=== PATIENT | female | born 1980 | race Caucasian/White ===

== ENCOUNTER 2020-08-09 13:49 | Outpatient (CLI) | payer BC, SELFPAY ==
[2020-08-09 14:18] VITALS: BMI 35.5
--- NOTE | 2020-08-09 14:27 | ECG_ITS ---
[facility] Test Date: 2020-08-09 Pat Name: Willa Christianson Department: Room: Gender: Female Tug Captain: : 1980 Requested By: April Galan Order Number: [id number] Mercedez MD: Rhoda Cardoza M.D. Interpretive Statements NAME OF STUDY: TREADMILL STRESS TEST INDICATION: Chest Pain Baseline blood pressure of 151/64 mm Hg, heart rate of 70 beats per minute and oxygen saturation 99%. EKG showed normal sinus rhythm, normal axis with normal ST-Ts. The patient exercised for 6 minutes 52 seconds on a standard Joe protocol. Patient attained a maximum heart rate of 160 beats per minute(89% of the maximum predicted heart rate) with a blood pressure at the peak exercise of 171/79 mm Hg and oxygen saturation 92%. The EKG at the peak exercise revealed sinus tachycardia with 1/[address] depression in infero-lateral leads; not meeting diagnostic crieteria for ischemia. Patient did not have any chest pain or any significant arrhythmis with the exercise. Patient developed chest pressure described as someone sitting on her chest during exercise that resolved by discharge. During the recovery phase, there were no new changes. Blood pressure at the end of the recovery phase was 130/84 mm Hg with a heart rate of 88 beats per minute and oxygen saturation 98%. CONCLUSION: 1. Normal EKG response to treadmill exercise. 2. Patient did have exercise-induced chest pressure that was self- limiting. No cardiac arrhythmia. 3. Good exercise tolerance, attained a maximum of 10.2 METs. Maximum VO2 of 35.7 mL/kg/min. 4. Baseline hypertension with normal response to exercise. Electronically Signed On 08-15-2020 21:04:30 MATCHBOOK MAKER by Rhoda Cardoza M.D. [id number]
[2020-08-09 14:55] VITALS: BP 130/84; PULSE 84
--- NOTE | 2020-08-09 14:55 | PC.NURSE ---
pt stated she couldn't go any longer due to the pressure in her chest and being out of breath. She stated it felt like someone was sitting on my chest chest pressure no longer present on discharge.
== END 2020-08-09 13:50 | disposition home or self-care (01) ==
LOC: CDL 13:53
PROVIDERS: Visit Provider Nurse Practitioner Family
DX: R07.9 Chest pain, unspecified (principal)
CPT/HCPCS: 93017

== ENCOUNTER 2025-02-16 05:30 | Emergency (ER) | payer BC, SELFPAY ==
--- OUTSIDE RECORDS SUMMARY | 2024-05-15 09:20 | XMS_ITS ---
Author Organization [employer] [employer] Address [address] [place] [address] Care Team Providers Care Telephone Lineworker Name Role Phone Genie Vega Primary Care Provider Unavailab Aleks Daniel Unavailable [phone] HARSHA PIERCE Unavailable [phone] REASON FOR VISIT 4 weeks w KUB Encounters Encounter Location Date Provider Diagnosis [facility] [address] [facility] [place] [address] 2024 HARSHA PIERCE Plan Of Treatment No Information Progress Notes * LUCIA, JuanB:1980 ( 44 yo F)Acc No.[id number]:2024 Patient: Willa OCHOA Provider: SYBIL Bae :1980 A ge:44 Y S ex:Female Date:2024 Address:[address] [facility], [id number] Pcp:Genie Vega Subjective: * Chief Complaints: * 1 . 4 weeks w KUB. * Medical History: Objective: * Vitals: Assessment: Plan: * Treatment: * Billing Information: * Visit Code: * Procedure Codes: * Electronic signature of HARSHA PIERCE APRN on 02/16/2025 at 05:41 AM CDT Sign off status: Pending * Provider: SYBIL Bae Date: 07/15/2023 Generated for Yolanda ford/Narayan/Chrisitting on: 0 02/16/2025 05:41 AM CDT
--- OUTSIDE RECORDS SUMMARY | 2024-11-20 08:00 | XMS_ITS ---
Author Organization [facility] Address [address] [place] [address] Care Team Providers Care Mineral Economist Name Role Phone Janet Vega Primary Care Provider [phone] REASON FOR VISIT 2 month f/u: chronic condition Encounters Encounter Location Date Provider Diagnosis [facility] [address] [place] [address] 11/20/2024 Janet Vega Plan Of Treatment No Information Progress Notes * CYNTHIA MYERSDOB:1980 (44 yo F)Acc No.[id number]:11/20/2024 Progress Notes Patient: Sanjana KAY CYNTHIA Tenorio Provider: Jaspreet Vega APRN :1980 A ge:44 Y S ex:Female Date:11/20/2024 Address:[address] [place], [place] [id number] Subjective: * Chief Complaints: * 2 month f/u: chronic condition * Ocular Surgical History: Objective: Vision Examination: Billing Information: * Procedure Codes: * Electronic signature of RYLEY Alex on 02/16/2025 at 05:41 AM CDT Sign off status: Pending * Provider: Jaspreet Vega APRN Date: 11/20/2024 Generated for Printi ng/Faxing/eTransmitting on: 02/16/2025 05:41 AM CDT
--- OUTSIDE RECORDS SUMMARY | 2025-01-30 03:30 | XMS_ITS ---
Author Organization [facility] Address [address] [place] [address] Care Team Providers Care Marshmallow Machine Operator Name Role Phone Jaent Vega Primary Care Provider [phone] REASON FOR VISIT f/u chronic cond/fasting lab *Controlling High BP and Colorectal Cancer Screening Medications Medication SIG (Take, Route, Frequency, Duration) Notes Start Date End Date Status ALPRAZolam 0.5 MG Tablet 1 tablet Orally up to Twice a day as needed; Duration: 30 days 08/04/2023 Not-Taking Lisinopril 20 MG Tablet 1 tablet Orally Once a day; Duration: 90 days 05/19/2023 Active oxyBUTYnin Chloride 5 MG Tablet 1 tablet Orally Once a day; Duration: 90 days Active Encounters Encounter Location Date Provider Diagnosis [facility] [address] [place] [address] 01/30/2025 Janet Vega Plan Of Treatment No Information Progress Notes * CYNTHIA MYERSDOB:1980 (44 yo F)Acc No.[id number]:01/30/2025 Progress Notes Patient: Sanjana CYNTHIA KAY Provider: Jaspreet Vega APRN :1980 A ge:44 Y S ex:Female Date:01/30/2025 Address:[address] [place], [place] [id number] Subjective: * Chief Complaints: * f /u chronic cond/fasting lab *Controlling High BP and Colorectal Cancer Screening * Medications: T akingLisinopril 20 MG Tablet 1 tablet Orally Once a day oxyBUTYnin Chloride 5 MG Tablet 1 tablet Orally Once a day Taking Lisinopril 20 MG Tablet 1 tablet Orally Once a day Taking oxyBUTYnin Chloride 5 MG Tablet 1 tablet Orally Once a day Not-TakingALPRAZolam 0.5 MG Tablet 1 tablet Orally up to Twice a day as needed Not-Taking ALPRAZolam 0.5 MG Tablet 1 tablet Orally up to Twice a day as needed Billing Information: * Procedure Codes: Care Plan Details* * Electronic signature of RYLEY Alex on 02/16/2025 at 05:41 AM CDT Sign off status: Pending * Provider: Jaspreet Vega APRN Date: 01/30/2025 Generated for Yolanda Marquez on: 02/16/2025 05:41 AM CDT
[2025-02-16] VITALS (8 sets, daily range): BP systolic 138–165; BP diastolic 83–117; PULSE 50–87; RESP 16–20; TEMP 36.6; O2SAT 94–100; BMI 40.3
--- OUTSIDE RECORDS SUMMARY | 2025-02-16 05:41 | XMS_ITS | Patient Health Record ---
Author Organization [employer] Address [address] [place] [address] Care Team Providers Care Measurement And Sensing Technician Name Role Phone Gary Genie Primary Care Provider Unavailab Aleks Daniel Unavailable [phone] ALEKS AMEZCUA Unavailable [phone] HARSHA PIERCE Unavailable [phone] TABITHA GAN Unavailable [phone] Allergies Allergen (clinical drug ingredient) Drug/Non Drug Allergy documented on EMR Reaction Allergy Type Onset Date Status Penicillin Unknown Drug Allergy Active Results Component Value Reference Range Notes Basic Metabolic Panel Reviewed date:04/13/2024 09:22:45 AM Interpretation: Performing Lab: Notes/Report: Testing performed at [facility], [address] [place] [address] Dr. [place], [place] [address]. CLIA ID#: [id number] W-gjynop-b-benzoquinone imine (NAPQI) is a metabolite of acetaminophen, NAPQI concentrations of apparoximately 10 mg/L correlation to toxic levels of acetaminophen demonstrates a greater than or equil to 10% change in results. NAPQI concentrations greater than this may lead to falsely depressed results for patient samples. Calculation performed from GFR calculator provided by the National Kidney Foundation. Glomerular Filtration rate(GRF) is the best overall index of kidney function. Normal GFR varies according to age,sex, body size, and declines with age. The National Kidney Foundation recommends using the CKD-EPI Creatinine Equation(2020) to estimate GFR. Testing performed at: [address] [place] [address] CLIA ID [id number] Use of this assay is not recommended for patients undergoing treatment with phenindione, due to the potential for falsely depressed results. Sodium 140 136-145 MMOL/L Potassium 3.9 3.5-5.1 MMOL/L Chloride 107 98-107 MMOL/L CO2 26.5 20.0-31.0 MMOL/L Glucose Serum 129 71-110 MG/DL BUN 10 7-21 MG/DL Creat .78 .51-1.17 MG/DL GFR 95.2 Anion Gap 10 5-15 BUN/Creat Ratio 12.8 12.0-20.0 % Calcium 9.3 8.7-10.4 MG/DL Osmo Serum,Calculated 291 280-300 MOSM/KG CBC w/ Auto Diff Reviewed date:04/13/2024 09:22:42 AM Interpretation: Performing Lab: Notes/Report: Testing performed at: [address] [place] [address] CLIA ID [id number] WBC 7.7 4.5-11.0 X10'3 RBC 4.42 4.00-5.20 X10'6 Hgb 13.3 12.0-16.0 G/DL Hct 41.0 36.0-46.0 % MCV 92.8 80.0-100.0 FL MCH 30.1 27.0-31.0 PG MCHC 32.4 31.0-37.0 G/DL Platelet 309 150-400 X10'3 RDW-SD 44.4 35.0-49.0 FL RDW-CV 12.9 12.2-15.6 % MPV 11.2 9.2-12.0 FL Neutro Auto% 65.0 40.0-70.0 % Lymph Auto% 29.1 22.0-44.0 % [place] Auto% 4.7 3.0-7.0 % Eos Auto% .4 2.0-4.0 % Baso Auto% 0.4 0.0-1.0 % Imm Gran% .4 .0-.4 % Neutro Abs 5.01 .80-7.70 Absolute Neutrophil Count 5010 Lymph Abs 2.24 .10-4.10 [place] Abs .36 .20-1.00 Eos Abs .03 .00-.40 Baso Abs .03 .00-.20 Imm Gran Abs .03 .00-.10 NRBC# .00 .00-.20 X10'3 NRBC% .00 .00-.20 /100 intact WBC's Urinalysis, Routine Reviewed date:04/07/2024 08:24:04 AM Interpretation: Performing Lab: Notes/Report: Urine-Color yellow Appearance clear Glucose - Bilirubin - Ketones - Specific [place] 1.020 Occult Blood 1+ pH 6.0 Urine Protein - Urobilinogen,Semi-Qn - Nitrite, Urine - WBC Esterase 2+ Urinalysis, Routine Reviewed date:03/30/2024 08:42:58 AM Interpretation: Performing Lab: Notes/Report: Urine-Color yellow Appearance clear Glucose - Bilirubin - Ketones - Specific [place] 1.020 Occult Blood trace pH 6.5 Urine Protein - Urobilinogen,Semi-Qn - Nitrite, Urine - WBC Esterase trace Reason For Referral Reason Please smita galvez for chronic kidney stones. Pt was seen 03/30/24. Diagnosis 1 Kidney stone (N20.0) Referred Provider TABITHA GAN Referred Provider Specialty Urology Referral Priority Routine Medications Medication SIG (Take, Route, Fr equency, Duration) Notes Start Date End Date Status Lisinopril 20 MG 1 tablet Orally Once a day Active Social History Tobacco Use: Social History Observation Description Date Details (start date - stop date) Never Smoker NA - NA Tobacco Control (Standard) Question Answer Notes Tobacco use: Nonsmoker Problems Problem Type SNOMED Code ICD Code Onset Dates Problem Status W/U Status Risk Notes Problem Essential hypertension (16053298) Essential (primary) hypertension (I10) Active confirmed Problem Kidney stone (33702745) Bilateral nephrolithiasis (N20.0) Active confirmed Problem Kidney stone (89496729) Kidney stone (N20.0) Active confirmed Vital Signs Heart Rate 75 /min 04/07/2024 Blood pressure diastolic 81 mm Hg 04/07/2024 Height-cm 167.64 cm 04/07/2024 Weight-kg 113.4 kg 04/07/2024 Height 66 in 04/07/2024 Blood pressure systolic 127 mm Hg 04/07/2024 Weight 250 lbs 04/07/2024 BMI 40.35 kg/m2 04/07/2024 Encounters Encounter Location Date Provider Diagnosis [facility] [address] [place] [address] 03/30/2024 Aleks Ballard Kidney stone N20.0 ; Right flank pain R10.9 and Microscopic hematuria R31.29 [facility] [address] [facility] [address] [place] [address] 04/07/2024 Aleks Ballard Microscopic hematuri a R31.29 ; Kidney stone N20.0 and Right flank pain R10.9 [facility] [address] [facility] [address] [place] [address] 04/14/2024 TABITHA ABBOTTER Calculus of kidney N 20.0 [facility] [address] [place] [address] 03/28/2024 ALEKS AMEZCUA [facility] [address] [place] [address] 03/30/2024 Aleks Ballard [facility], [facility] [address] [place] [address] 04/10/2024 TABITHA GAN [facility] [address] [place] [address] 04/10/2024 TABITHA GAN Preop testing Z01.81 8 and Essential (primary) hypertension I10 [facility] [address] [place] [address] 04/10/2024 Aleks Peeleazar [facility], [facility] [address] [place] [address] 04/14/2024 Aleks Ballard Bilateral nephrolithiasis N20.0 [facility], [facility] [address] [place] [address] 04/18/2024 Aleks Ballard Assessments Encounter Date Diagnosis (ICD Code) Assessment Notes Treatment Notes Treatment Clinical Notes Section Notes 04/14/2024 Bilateral nephrolithiasis (ICD-10 - N20.0) 04/07/2024 Microscopic hematuria (ICD-10 - R31.29) I reviewed previous CT and KUB imaging along with radiology report and discussed findings with patient with bilateral nonobstructive stone seen with lower pole to the right measuring 5mm with some other punctate stones and to the left, there is a lower pole calcification measuring 6x10 mm with other punctate nephrolithiasis. She is still reporting of intermittent R flank pain. Did discuss these nonobstructive stones that are seen may not be the cause of her pain. She would like to move forward with lithotripsy and then assess further following and start with the R ESWL and then move forward to the L following at another date. I discussed that the larger stone seen on the R does appear more parenchymal and no need for intervention at this time. Appears to have been there long term. Given everything discussed and findings, we discussed on how the procedure was performed, and we also had further discussion with risks/benefits/alt ernatives and postprocedural expectations. Presurgical and what to expect postoperatively discussed. The plan is to have this done as soon as possible given symptoms. Will send UA for PCR testing. Patient is requesting to be under Dr. Liang care. For now, and through shared decision making we are in agreement with no further workup or intervention at this time, aside from what was mentioned. Vitals are stable and patient is currently asymptomatic. Patient acting appropriate. Patient will call back if further issues. All questions that were asked, were answered. Patient satisfied with plan. 03/30/2024 Right flank pain (ICD-10 - R10.9) I reviewed previous imaging along with radiology report and discussed findings with patient with bilateral nonobstructive stone seen. Patient is currently doing well with no significant pain today, but has had R flank pain.. Did discuss if patient did develop pain/symptoms, may consider to start on Flomax, strainers, and reinforcement of hydration. UA test currently with no concern of infection but with trace blood and leuks. We also reviewed surgical options and pt will call back sooner if patient desires to proceed with that but otherwise, through shared decision making, we are in agreement with gaining a CT prior to moving forward with any further intervention involving nephrolithiasis seen on KUB. Patient is to go to the ER versus clinic depending on severity of symptoms if does start to pass stone. Otherwise, no emergent need of intervention at this time. Plan is to have patient return care in [address] orders that are placed. For now, and through shared decision making we are in agreement with no further workup or intervention at this time, aside from what was mentioned. Vitals are stable and patient is currently asymptomatic. Patient acting appropriate. Patient will call back if further issues. All questions that were asked, were answered. Patient satisfied with plan. 03/30/2024 Kidney stone (ICD-10 - N20.0) I reviewed previous imaging along with radiology report and discussed findings with patient with bilateral nonobstructive stone seen. Patient is currently doing well with no significant pain today, but has had R flank pain.. Did discuss if patient did develop pain/symptoms, may consider to start on Flomax, strainers, and reinforcement of hydration. UA test currently with no concern of infection but with trace blood and leuks. We also reviewed surgical options and pt will call back sooner if patient desires to proceed with that but otherwise, through shared decision making, we are in agreement with gaining a CT prior to moving forward with any further intervention involving nephrolithiasis seen on KUB. Patient is to go to the ER versus clinic depending on severity of symptoms if does start to pass stone. Otherwise, no emergent need of intervention at this time. Plan is to have patient return care in [address] orders that are placed. For now, and through shared decision making we are in agreement with no further workup or intervention at this time, aside from what was mentioned. Vitals are stable and patient is currently asymptomatic. Patient acting appropriate. Patient will call back if further issues. All questions that were asked, were answered. Patient satisfied with plan. 04/10/2024 Preop testing (ICD-10 - Z01.818) 04/14/2024 Calculus of kidney (ICD-10 - N20.0) 04/10/2024 Essential (primary) hypertension (ICD-10 - I10) 03/30/2024 Microscopic hematuria (ICD-10 - R31.29) I reviewed previous imaging along with radiology report and discussed findings with patient with bilateral nonobstructive stone seen. Patient is currently doing well with no significant pain today, but has had R flank pain.. Did discuss if patient did develop pain/symptoms, may consider to start on Flomax, strainers, and reinforcement of hydration. UA test currently with no concern of infection but with trace blood and leuks. We also reviewed surgical options and pt will call back sooner if patient desires to proceed with that but otherwise, through shared decision making, we are in agreement with gaining a CT prior to moving forward with any further intervention involving nephrolithiasis seen on KUB. Patient is to go to the ER versus clinic depending on severity of symptoms if does start to pass stone. Otherwise, no emergent need of intervention at this time. Plan is to have patient return care in [address] orders that are placed. For now, and through shared decision making we are in agreement with no further workup or intervention at this time, aside from what was mentioned. Vitals are stable and patient is currently asymptomatic. Patient acting appropriate. Patient will call back if further issues. All questions that were asked, were answered. Patient satisfied with plan. 04/07/2024 Kidney stone (ICD-10 - N20.0) I reviewed previous CT and KUB imaging along with radiology report and discussed findings with patient with bilateral nonobstructive stone seen with lower pole to the right measuring 5mm with some other punctate stones and to the left, there is a lower pole calcification measuring 6x10 mm with other punctate nephrolithiasis. She is still reporting of intermittent R flank pain. Did discuss these nonobstructive stones that are seen may not be the cause of her pain. She would like to move forward with lithotripsy and then assess further following and start with the R ESWL and then move forward to the L following at another date. I discussed that the larger stone seen on the R does appear more parenchymal and no need for intervention at this time. Appears to have been there long term. Given everything discussed and findings, we discussed on how the procedure was performed, and we also had further discussion with risks/benefits/alt ernatives and postprocedural expectations. Presurgical and what to expect postoperatively discussed. The plan is to have this done as soon as possible given symptoms. Will send UA for PCR testing. Patient is requesting to be under Dr. Liang care. For now, and through shared decision making we are in agreement with no further workup or intervention at this time, aside from what was mentioned. Vitals are stable and patient is currently asymptomatic. Patient acting appropriate. Patient will call back if further issues. All questions that were asked, were answered. Patient satisfied with plan. 04/07/2024 Right flank pain (ICD-10 - R10.9) I reviewed previous CT and KUB imaging along with radiology report and discussed findings with patient with bilateral nonobstructive stone seen with lower pole to the right measuring 5mm with some other punctate stones and to the left, there is a lower pole calcification measuring 6x10 mm with other punctate nephrolithiasis. She is still reporting of intermittent R flank pain. Did discuss these nonobstructive stones that are seen may not be the cause of her pain. She would like to move forward with lithotripsy and then assess further following and start with the R ESWL and then move forward to the L following at another date. I discussed that the larger stone seen on the R does appear more parenchymal and no need for intervention at this time. Appears to have been there long term. Given everything discussed and findings, we discussed on how the procedure was performed, and we also had further discussion with risks/benefits/alt ernatives and postprocedural expectations. Presurgical and what to expect postoperatively discussed. The plan is to have this done as soon as possible given symptoms. Will send UA for PCR testing. Patient is requesting to be under Dr. Garth gerber. For now, and through shared decision making we are in agreement with no further workup or intervention at this time, aside from what was mentioned. Vitals are stable and patient is currently asymptomatic. Patient acting appropriate. Patient will call back if further issues. All questions that were asked, were answered. Patient satisfied with plan. Plan Of Treatment Pending Test Test Name Order Date KUB, X-Ray: Abdomen, Kidney, Urete r, bladder 04/14/2024 Electrocardiogram, 12 Lead Tracing-[id number] 04/10/2024 CT Abdomen, Pelvis w/o Contrast--[id number] 03/30/2024 Insurance Providers Payer Name Payer Address Payer Phone Subscriber Number Group Number Insured Name Patient Relationship to Insured Coverage Start Date Coverage End Date [employer] [address] [place], [place] [id number] Willa Myers Self - patient is the insured Medical (General) History Medical History History ICD Code HTN Surgical History Surgery Date(Month/Year) lithotripsy 2002 ureteral stents cholecystectomy
--- OUTSIDE RECORDS SUMMARY | 2025-02-16 05:42 | XMS_ITS | Patient Health Record ---
Author Organization [facility] Address [address] [place] [address] [place] [address] Care Team Providers Care Relationship Consultant Name Role Phone Janet Vega Primary Care Provider [phone] YoCleopatra nelson Unavailable [phone] Aurelia Finn Unavailable [phone] Allergies Allergen (clinical drug ingredient) Drug/Non Drug Allergy documented on EMR Reaction Allergy Type Onset Date Status Penicillin rash Drug Allergy Active Results Component Value Reference Range Flag Notes zzzAbdomen Reviewed date:03/27/2024 10:45:53 AM Interpretation: Performing Lab: Notes/Report: See Below For Report Abdomen Read See Below For Report zzzAbdomen Reviewed date:03/26/2024 12:33:34 PM Interpretation: Performing Lab: Notes/Report: [id number] UA Dip / Urinalysis, Routine , Manual - [id number] Reviewed date:08/17/2024 10:54:57 AM Interpretation: Performing Lab: Notes/Report: Color yellow Clarity clear Glucose neg Bilirubin neg Ketones 1+ Specific [place] 1.020 Blood neg pH 6.5 Protein 1+ Nitrite, Urine neg Leukocytes 1+ Comprehensive Metabolic Pane l (CMP) [id number] Reviewed date:08/01/2024 09:36:35 AM Interpretation: Performing Lab: Notes/Report: Diagnosis Description: Essential (primary) hypertension Glucose Serum 106 71-110 MG/DL Testing p erformed at [facility], [address] [place] [address] [place] [address]. CLIA ID#: [id number] BUN 14 7-21 MG/DL Creat .74 .51-1.17 MG/DL N-kudkig-o-benzoquinon e imine (NAPQI) is a metabolite of acetaminophen, NAPQI concentrations of apparoximately 10 mg/L correlation to toxic levels of acetaminophen demonstrates a greater than or equil to 10% change in results. NAPQI concentrations greater than this may lead to falsely depressed results for patient samples. Use of this assay is not recommended for patients undergoing treatment with phenindione, due to the potential for falsely depressed results. GFR 101.5 NA Calculation pe rformed from GFR calculator provided by the [employer]. Glomerular Filtration rate(GRF) is the best overall index of kidney function. Normal GFR varies according to age,sex, body size, and declines with age. The National Kid[employer] Foundation recommends using the CKD-EPI Creatinine Equation(2020) to estimate GFR. BUN/Creat Ratio 18.9 12.0-20.0 % Total Protein 7.1 5.8-8.0 G/DL Albumin 4.5 3.2-4.8 G/DL Globulin 2.6 2.3-3.5 G/DL Alb/Glob 1.7 0.8-2.2 Calcium 9.5 8.7-10.4 MG/DL Sodium 138 136-145 MMOL/L Potassium 4.4 3.5-5.1 MMOL/L Chloride 104 98-107 MMOL/L CO2 26.6 20.0-31.0 MMOL/L Anion Gap 12 5-15 Alk Phos 103 46-116 Bili Total .2 .3-1.2 MG/DL LOW Use of this assay is not recommended for patients undergoing treatment with eltrombopag due to the potential for falsely elevated results. AST/SGOT 15 15-37 UNIT/L ALT/SGPT 12 12-78 UNIT/L Osmo Serum,Calculated 287 280-300 MOSM/KG Thyroid Stimulating Hormone (TSH) 27854 Reviewed date:08/01/2024 09:33:02 AM Interpretation: Performing Lab: Notes/Report: Diagnosis Description: Essential (primary) hypertension TSH 2.854 .358-3.740 MlU/ML CBC w\o Diff 45041 Reviewed date:08/01/2024 09:33:42 AM Interpretation: Performing Lab: Notes/Report: Diagnosis Description: Essential (primary) hypertension WBC 11.1 4.5-11.0 X10'3 HI RBC 4.31 4.00-5.20 X10'6 Hgb 13.1 12.0-16.0 G/DL Hct 39.5 36.0-46.0 % MCV 91.6 80.0-100.0 FL MCH 30.4 27.0-31.0 PG MCHC 33.2 31.0-37.0 G/DL Platelet 309 150-400 X10'3 RDW-SD 43.1 35.0-49.0 FL RDW-CV 12.7 12.2-15.6 % MPV 11.5 9.2-12.0 FL Covid/Flu Rapid Combo Reviewed date:02/23/2024 02:30:23 PM Interpretation: Performing Lab: Notes/Report: Covid19 POS Flu A neg Flu B neg Rapid Strep (Strep A) -[id number] Reviewed date:02/23/2024 02:30:55 PM Interpretation: Performing Lab: Notes/Report: Strep neg Reason For Referral Reason Please smita galvez for chronic kidney stones. Diagnosis 1 Kidney stone (N20.0) Referral Organization [facility] Referring Provider First Name Janet Referring Provider Last Name Gary Referring Provider Speciality Nurse Harrison torres Referred Provider TABITHA GAN Referred Provider Specialty Urology Referral Priority Routine Medications Medication SIG (Take, Route, Frequency, Duration) Notes Start Date End Date Status ALPRAZolam 0.5 MG Tablet 1 tablet Orally up to Twice a day as needed; Duration: 30 days 08/04/2023 Not-Taking Lisinopril 20 MG Tablet 1 tablet Orally Once a day; Duration: 90 days 05/19/2023 Active oxyBUTYnin Chloride 5 MG Tablet 1 tablet Orally Once a day; Duration: 90 days Active Immunizations Vaccine Route Administration Date Status Comme nts COVID-19 Vaccine (Moderna) Dose #2 Unknown 04/12/2021 Administered Flucelvax Quadrivalent Pres Free IM Intramuscular 06/23/2023 Administered [id number] Flucelvax Trivalent, Syringe 0.5 mL, PF Unknown 07/31/2024 Refused Pt refused Tdap Unknown 07/30/2023 Administered COVID-19 Vaccine (Moderna) Dose #2 Unknown 02/27/2021 Administered Social History Tobacco Use: Social History Observation Description Date Details (start date - stop date) Never Smoker NA - NA Social History Depression Screening Social Info Question Answer Notes depression screening findings Findings Negative (0 -4) PHQ-9 Little interest or p denny in doing things Not at all Feeling down, depressed, or hopeless Not at all Trouble falling or staying asleep, or sleeping t oo much Not at all Feeling tired or having little energy Not at all Poor appetite or overeating Not at all Feeling bad about yourself, or that you are a failure, or have let yourself or your family down Not at all Trouble concentrating on thi ngs, such as reading the newspaper or watching television Not at all Moving or speaking so slowly that other people could have noticed. Or the opposite ? being so fidgety or restless that you have been moving around a lot more than usual Not at all Thoughts that you would be b fariba off , or of hurting yourself in some way Not at all Total Score 0 Drugs/Alcohol: Social Info Question Answer Notes Drugs Have you used drugs other than those for medical reasons in the past 12 months? No Caffeine Intake: more than 4 cups per day Drug/Alcohol: Social Info Question Answer Notes AUDIT-C (Standard) Did you have a drink containing alcohol in the past year? No Points 0 Interpretation Negative Tobacco Use: Social Info Question Answer Notes Tobacco Control (Standard) Tobacco use: Nonsmoker Screening Not Performed: Do you smoke? No Tobacco use other than smoking: Are you an other tobac co user? No Additional Details Category Social Info Options Details Drugs/Alcohol: Do you smoke marijuana? De nies Do you drink alcohol? No zzMigrated Social History Migrated Social History Social History(Smoking(MU):):Smoking Status: Non-smoker ;Social History(Tea):yes ;Social History(Tobacco Use):no ;Social History(Alcohol:):no ;Social History(Second-hand Smoke Exposure):no ; Problems Problem Type SNOMED Code ICD Code Onset Dates Problem Status W/U Status Risk Notes Problem Chronic tension-type headache (450692912) Chronic tension-type headache, not intractable (G44.229) Active confirmed Problem Essential hypertension (16192546) Essential hypertension (I10) Active confirmed Problem Anxiety (68649482) Anxiety (F41.9) Active confirmed Problem Kidney stone (90497012) Kidney stone (N20.0) Active confirmed Problem Urinary incontinence (482753571) Daytime incontinence (R32) Active confirmed Problem Morbid obesity (679094577) Severe obesity (BMI >= 40) (E66.01) Active confirmed Vital Signs Heart Rate 82 /min 09/18/2024 Respiratory Rate 18 /min 09/18/2024 Blood pressure diastolic 80 mm Hg 09/18/2024 Oximetry 99 % 09/18/2024 Height-cm 167.64 cm 09/18/2024 Weight-kg 123.7 kg 09/18/2024 Height 66 in 09/18/2024 Blood pressure systolic 140 mm Hg 09/18/2024 Weight 272.71 lbs 09/18/2024 BMI 44.01 kg/m2 09/18/2024 Encounters Encounter Location Date Provider Diagnosis [address] [address] 09/18/2024 Janet Vega Essential hypertension I10 ; Anxiety F41.9 ; Severe obesity (BMI >= 40) E66.01 and Daytime incontinence R32 [address] [address] [address] 07/31/2024 Janet Vega Depression screen Z13.31 ; Essential hypertension I10 ; Kidney stone N20.0 ; Encounter for immunization Z23 and Immunization not carried out because of patient refusal Z28.21 [address] [address] [address] 03/24/2024 Janet Vega Kidney stone N20.0 ; Essential hypertension I10 and Anxiety F41.[address] [address] 08/17/2024 Aurelia Finn Acute cystitis N30.00 [facility] [address] [place] [address] 02/23/2024 Cleopatra Depper Cough R05.9 [address] [address] 01/30/2025 Janet Vega [address] [address] 04/03/2024 Janet Vega [address] [place] [address] 03/28/2024 Janet Vega Assessments Encounter Date Diagnosis (ICD Code) Assessment Notes Treatment Notes Treatment Clinical Notes Section Notes 02/23/2024 Cough (ICD-10 - R05.9) 03/24/2024 Kidney stone (ICD-10 - N20.0) acute on chronic. x-ray today. refer to urology. 03/24/2024 Essential hypertension (ICD-10 - I10) chronic. stable. continue lisinopril 07/31/2024 Depression screen (ICD-10 - Z13.31) 07/31/2024 Essential hypertension (ICD-10 - I10) Chronic. stable. continue lisinopril 08/17/2024 Acute cystitis (ICD-10 - N30.00) Rx to pharmacy to complete. Push water intake. 09/18/2024 Essential hypertension (ICD-10 - I10) chronic. not at goal. restart medicaiton. continue to monitor at home. 09/18/2024 Anxiety (ICD-10 - F41.9) chronic. stable without medication 09/18/2024 Severe obesity (BMI >= 40) (ICD-10 - E66.01) 07/31/2024 Kidney stone (ICD-10 - N20.0) chronic. planning on lithotripsy this summer. 03/24/2024 Anxiety (ICD-10 - F41.9) stable. continue alprazolam as needed. 07/31/2024 Encounter for immunization (ICD-10 - Z23) 09/18/2024 Daytime incontinence (ICD-10 - R32) chronic. worsening. Start oxybutynin. 07/31/2024 Immunization not carried out because of patient refusal (ICD-10 - Z28.21) 03/24/2024 Other [employer] speech recognition software has been utilized in the dictation of this note. Occasionally, typographical errors may be identified even after routine proofreading. For any questions, please contact our office and we will be happy to address these to the best of our ability. All of patient's questions are encouraged and addressed to their apparent satisfaction. They are agreeable with the proposed plan of care and denies further needs or concerns. I am happy to see patient prior to next office visit as needed for acute concerns. All patient's questions are encouraged and addressed to their apparent satisfaction. Unless otherwise noted above, they are agreeable with the proposed plan of care and deny further needs or concerns at this time. I am happy to see patient prior to next office visit as needed for acute concerns. 07/31/2024 Other [employer] speech recognition software has been utilized in the dictation of this note. Occasionally, typographical errors may be identified even after routine proofreading. For any questions, please contact our office and we will be happy to address these to the best of our ability. All of patient's questions are encouraged and addressed to their apparent satisfaction. They are agreeable with the proposed plan of care and denies further needs or concerns. I am happy to see patient prior to next office visit as needed for acute concerns. All patient's questions are encouraged and addressed to their apparent satisfaction. Unless otherwise noted above, they are agreeable with the proposed plan of care and deny further needs or concerns at this time. I am happy to see patient prior to next office visit as needed for acute concerns. 09/18/2024 Other [employer] speech recognition software has been utilized in the dictation of this note. Occasionally, typographical errors may be identified even after routine proofreading. For any questions, please contact our office and we will be happy to address these to the best of our ability. All of patient's questions are encouraged and addressed to their apparent satisfaction. They are agreeable with the proposed plan of care and denies further needs or concerns. I am happy to see patient prior to next office visit as needed for acute concerns. All patient's questions are encouraged and addressed to their apparent satisfaction. Unless otherwise noted above, they are agreeable with the proposed plan of care and deny further needs or concerns at this time. I am happy to see patient prior to next office visit as needed for acute concerns. Plan Of Treatment Pending Test Test Name Order Date XRAY EXAM ABDOMEN 1 [id number] Esophagram w/ Swallow [id number] Insurance Providers Payer Name Payer Address Payer Phone Subscriber Number Group Number Insured Name Patient Relationship to Insured Coverage Start Date Coverage End Date [employer] [place] [address] [place] [address] [phone] [id number] CYNTHIA MYERS Self - patient is the insured Medical (General) History Medical History History ICD Code kidney stones Surgical History Surgery Date(Month/Year) stents in kidneys for stones cholecystectomy 2014 knee surgery 1994 urologist litho 04/04 Hospitalization History Reason Date(Month/Year) 12 years ago for of chid
--- NOTE | 2025-02-16 05:55 | ED_ITS ---
HPI - Abdominal Pain 2 General: Chief Complaint: Abdominal Pain Stated Complaint: Possibly kidney stone Time Seen by Provider: 02/16/25 05:54 History of Present Illness: 44-year-old female [facility] with complaints of left flank pain that began around 415 this morning. She has a well-established history of kidney stones has had multiple stones pass in the past has had lithotripsy as well. She been feeling fine up until early this morning when she got up to urinate began to feel it discomfort in her back it rapidly escalated to severe renal colic pain similar to what she has had in the past. She has no dysuria urgency or frequency no fever sweats or chills. She had no urinary tract infection symptoms prior to the onset of this episode of renal colic. She usually sees Dr. Forrester in [place] Associated Symptoms: Denies chills, dysuria and fever(s) Related Data Previous Rx's ?Medication ?Instructions ?Recorded ciprofloxacin HCl 250 mg tablet 250 mg PO BID #14 tabs 02/16/25 hydrocodone 5 mg-acetaminophen 325 1 tab PO Q6H PRN pa in #25 tabs 02/16/25 mg tablet promethazine 25 mg tablet 25 mg PO Q6H PRN nausea and 02/16/25 vomiting #20 tabs tamsulosin 0.4 mg capsule 0.4 mg PO DAILY #30 caps 03/05 Review of Systems 2 Const: Denies: fever(s) or chills Card: Denies: chest pain Resp: Denies: dyspnea GI: Reports: abdominal pain : Reports: flank pain; Denies: dysuria, urinary frequency or urinary urgency Musc: Denies: neck pain or back pain Skin/Breast: Denies: rash Physical Exam 2 Const: GENERAL APPEARANCE: cooperative ORIENTATION/CONSCIOUSNESS: Yes awake, Yes oriented to person, Yes oriented to place and Yes oriented to time HENMT: COMMON NORMALS: normocephalic, atraumatic and hearing grossly normal bilaterally HEAD & SCALP: normocephalic and atraumatic Resp: COMMON NORMALS: normal respiratory effort, No retractions, No use of accessory muscles and clear to auscultation bilaterally AUSCULTATION: clear to auscultation bilaterally Cardio: COMMON NORMALS: regular rate, regular rhythm and No murmurs present (Cardio) RATE: regular rate RHYTHM: regular rhythm GI: COMMON NORMALS: Soft to palpation and No hepatosplenomegaly present A USCULTATION: Yes normoactive bowel sounds PALPATION: Yes Soft to palpation, No Tenderness to palpation present (GI), No Guarding due to palpation present (GI) and Yes No hepatosplenomegaly present Extremity: COMMON NORMALS: normal to inspection, capillary refill normal, no clubbing, cyanosis or edema, no calf tenderness and no pedal edema Neuro: SENSORIUM/ORIENTATION: Yes oriented to person, Yes oriented to place and Yes oriented to time Skin: COMMON NORMALS: no rashes or lesions noted GENERAL SKIN EXAM: no rashes or lesions noted Course 2 Vital Signs: Vital signs: Vital Signs Temperature 98 F 02/16/25 05:48 Pulse Rate 69 02/16/25 09:15 Respiratory Rate 16 02/16/25 06:00 Blood Pressure 138/83 02/16/25 09:15 Pulse Oximetry 96 02/16/25 09:15 MDM - Abdominal Pain Medical Decision Making Pain is adequately controlled emergency room. Drug attempted to contact Dr. Forrester he is not at his office today. Family of the patient called office on the office open they found that he is working out of town today. They will try to make a follow-up appoint with him next week. At this point I think we can treat her as an outpatient her pain is well-controlled. There is some suggestion of a few white blood cells but also few squamous cells on her urine them concerned there may be an underlying infection will start on oral antibiotics until the culture has resulted. Pain medications tamsulosin promethazine strain urine. Advised patient if she starts running fever or is uncontrolled pain she is to return to the nearest emergency room. Medical Records I reviewed the patient's medical records. Lab Data I reviewed the patient's lab results. 02/16/25 05:55 02/16/25 05:55 Labs/Radiology: Radiology Impressions Abdomen/Pelvis CT 02/16/25 06:00 IMPRESSION: 11 x 5.5 mm stone in the superior aspect of the left ureter causing mild hydronephrosis. Laboratory Results WBC 8.85 10^3/uL (3.29-11.43) 02/16/25 05:55 RBC 4.49 10^6/uL (3.85-5.65) 02/16/25 05:55 Hgb 13.40 g/dL (11.27-16.99) 02/16/25 05:55 Hct 40.8 % (36-47) 02/16/25 05:55 MCV 90.9 fl (85-98) 02/16/25 05:55 MCH 29.8 pg (27-33) 02/16/25 05:55 MCHC 32.8 g/dL (30-55) 02/16/25 05:55 RDW 12.6 % (12.1-15.1) 02/16/25 05:55 Plt Count 310 10^3/cmm (157-399) 02/16/25 05:55 MPV 10.8 fL (7.4-10.4) H 02/16/25 05:55 Neut % (Auto) 61.7 % 02/16/25 05:55 Lymph % (Auto) 30.4 % 02/16/25 05:55 [place] % (Auto) 6.3 % 02/16/25 05:55 Eos % (Auto) 0.8 % 02/16/25 05:55 Baso % (Auto) 0.6 % 02/16/25 05:55 Neut # (Auto) 5.46 10^3/uL (1.8-7.7) 02/16/25 05:55 Lymph # (Auto) 2.7 10^3/uL (0.8-4.8) 02/16/25 05:55 [place] # (Auto) 0.6 10^3/uL (0.2-0.9) 02/16/25 05:55 Eos # (Auto) 0.1 10^3/uL (0.0-0.8) 02/16/25 05:55 Baso # (Auto) 0.1 10^3/uL (0.0-0.1) 02/16/25 05:55 Nucleated RBC % (auto) 0 % 02/16/25 05:55 Nucleated RBCs # 0.0 /100WBC 02/16/25 05:55 Sodium 138 mmol/L (136-145) 02/16/25 05:55 Potassium 4.0 mmol/L (3.5-5.1) 02/16/25 05:55 Chloride 104 mmol/L (98-107) 02/16/25 05:55 Carbon Dioxide 23 mmol/L (22-29) 02/16/25 05:55 Anion Gap 15.0 (5-19) 02/16/25 05:55 BUN 9 mg/dL (6-20) 02/16/25 05:55 Creatinine 0.7 mg/dL (0.5-0.9) 02/16/25 05:55 GFR Calculation 90.1 mL/min (90-130) 02/16/25 05:55 Glucose 115 mg/dL (65-115) 02/16/25 05:55 Calculated Osmolality 286 mOsm/kg (285-295) 02/16/25 05:55 Calcium 9.1 mg/dL (8.5-10.5) 02/16/25 05:55 Total Bilirubin 0.5 mg/dL (0.15-1.2) 02/16/25 05:55 AST 17 U/L (0-32) 02/16/25 05:55 ALT 19 U/L (0-33) 02/16/25 05:55 Alkaline Phosphatase 109 U/L (35-105) H 02/16/25 05:55 Total Protein 7.3 g/dL (6.6-8.7) 02/16/25 05:55 Albumin 4.1 g/dL (3.5-5.2) 02/16/25 05:55 Globulin 3.2 g/dL (1.3-4.6) 02/16/25 05:55 Lipase 28 U/L (13-60) 02/16/25 05:55 HCG, Qual Negative (Negative) 02/16/25 05:55 Urine Color Yellow (Yellow) 02/16/25 05:55 Urine Appearance Cloudy (CLEAR) A 02/16/25 05:55 Urine pH 5.5 (5-7) 02/16/25 05:55 Ur Specific [place] 1.020 (1.005-1.030) 02/16/25 05:55 Urine Protein Negative (Negative) 02/16/25 05:55 Urine Glucose (UA) Negative (Normal) 02/16/25 05:55 Urine Ketones Negative (Negative) 02/16/25 05:55 Urine Blood 3+ (Negative) A 02/16/25 05:55 Urine Nitrate Negative (Negative) 02/16/25 05:55 Urine Bilirubin Negative (Negative) 02/16/25 05:55 Urine Urobilinogen 1.0 mg/dL (Negative) 02/16/25 05:55 Ur Leukocyte Esterase 1+ (Negative) A 02/16/25 05:55 Urine RBC >100 /hpf (0-2) H 02/16/25 05:55 Urine WBC 21-50 /hpf (0-5) H 02/16/25 05:55 Ur Squamous Epith Cells 11-20 /hpf (0-5) H 02/16/25 05:55 Amorphous Sediment Not Reportable 02/16/25 05:55 Urine Bacteria 2+ /hpf (NONE) H 02/16/25 05:55 Hyaline Casts 0.40 /lpf 02/16/25 05:55 All radiology interpretation(s) finalized by discharge Discharge Plan Discharge Patient Disposition: Home Clinical Impression: Calculus of kidney Condition: Stable Prescriptions: New hydrocodone-acetaminophen 5-325 mg tablet 1 tab PO Q6H PRN (Reason: pain) Qty: 25 0RF promethazine 25 mg tablet 25 mg PO Q6H PRN (Reason: nausea and vomiting) Qty: 20 0RF tamsulosin 0.4 mg capsule 0.4 mg PO DAILY Qty: 30 0RF ciprofloxacin HCl 250 mg tablet 250 mg PO BID Qty: 14 0RF Discharge Orders: Discharge ED (Routine); Ordered 02/16/25 Ordered By: Lexx Boogie Referrals: Janet Vega NP [Primary Care Provider] Discharge Diet: Usual diet Discharge Activity: Resume usual activity Patient Instructions: Opioid Safety, Pain Management, Patient Portal & Mc Instructions Activity Restrictions/Additional Instructions: Thank you for choosing [facility] for your healthcare needs today. It is very important that you follow up as instructed or that you return to the Emergency Department should you have concerns or if your condition changes or worsens in any way. You were seen in the emergency room with left flank pain. CT shows a kidney stone on the left as you had expected. There is some evidence of possible infection. There is no elevation of your WBC Print Language: Persian Coding Level of Care Code ED Physicist Astrophysics for Junaid Grant
--- NOTE | 2025-02-16 06:00 | CTR_ITS ---
PROCEDURE INFORMATION: Exam: CT Abdomen And Pelvis Without Contrast Exam date and time: 02/16/2025 6:06 AM Age: 44 years old Clinical indication: Abdominal pain; Flank; Left; Prior surgery; Surgery date: 6+ months; Surgery type: Gallbladder, multiple lithotripsy; HX of renal calculus; Additional info: Flank pain TECHNIQUE: Imaging protocol: Computed tomography of the abdomen and pelvis without contrast. Radiation optimization: All CT scans at this facility use at least one of these dose optimization techniques: automated exposure control; mA and/or kV adjustment per patient size (includes targeted exams where dose is matched to clinical indication); or iterative reconstruction. COMPARISON: No relevant prior studies available. RADIATION DOSE METRICS: Total DLP (mGy-cm): 1191.43 FINDINGS: Liver: Normal. No mass. Gallbladder and biliary ducts: There has been cholecystectomy. Pancreas: Normal. No ductal dilation. Spleen: Normal. No splenomegaly. Adrenal glands: Normal. No mass. Kidneys and ureters: 11 x 5.5 mm stone in the superior aspect of the left ureter causing mild hydronephrosis. Numerous smaller nonobstructive bilateral renal stones. Renal parenchymal calcification anterior cortex right kidney superior pole. Stomach and bowel: Unremarkable. No obstruction. No mucosal thickening. Appendix: No evidence of appendicitis. Intraperitoneal space: Unremarkable. No free air. No significant fluid collection. Vasculature: Unremarkable. No abdominal aortic aneurysm. Lymph nodes: Unremarkable. No enlarged lymph nodes. Urinary bladder: The bladder is decompressed. Reproductive: Unremarkable as visualized. Bones/joints: Unremarkable. No acute fracture. Soft tissues: Unremarkable. CT/CT kidney stone [id number] IMPRESSION: 11 x 5.5 mm stone in the superior aspect of the left ureter causing mild hydronephrosis.
[2025-02-16 06:04] LABS: Hematocrit 40.8 % (36-47); Hemoglobin 13.40 g/dL (11.27-16.99); Mean Corpuscular HGB Conc 32.8 g/dL (30-55); Mean Corpuscular Hemoglobin 29.8 pg (27-33); Mean Corpuscular Volume 90.9 fl (85-98); Nucleated Red Blood Cells % 0 %; Platelet Count 310 10^3/cmm (157-399); Red Blood Count 4.49 10^6/uL (3.85-5.65); White Blood Count 8.85 10^3/uL (3.29-11.43)
[2025-02-16 06:14] LABS: Glucose Urine UA Negative (Normal); HCG, Serum Qual Negative (Negative); Nitrate Urine Negative (Negative); Specific Gravity, Urine 1.020 (1.005-1.030)
[2025-02-16] MEDS: ondansetron 2 mg/ML SDV 2 mL 4 MG IVP (06:17)
[2025-02-16] MEDS: morphine 4 mg/mL SDV 1 mL IVP (06:17)
[2025-02-16 06:19] LABS: Add Urine Microscopic? YES
[2025-02-16 06:20] LABS: Alanine Aminotransferase 19 U/L (0-33); Albumin Level 4.1 g/dL (3.5-5.2); Alkaline Phosphatase 109 U/L (35-105); Anion Gap 15.0 (5-19); Aspartate Amino Transferase 17 U/L (0-32); Blood Urea Nitrogen 9 mg/dL (6-20); Calcium 9.1 mg/dL (8.5-10.5); Carbon Dioxide 23 mmol/L (22-29); Chloride 104 mmol/L (98-107); Creatinine Clr Calc Pharmacy 128.3143; Globulin 3.2 g/dL (1.3-4.6); Glucose 115 mg/dL (65-115); Lipase 28 U/L (13-60); Osmolality Calculated 286 mOsm/kg (285-295); Potassium 4.0 mmol/L (3.5-5.1); Sodium 138 mmol/L (136-145); Total Protein 7.3 g/dL (6.6-8.7)
[2025-02-16] MEDS: cefTRIAXone 1,000 mg SDV 1000 MG IVP (08:29)
[2025-02-16] MEDS: HYDROmorphone 0.5 MG/0.5 ML INJ IVP (09:07)
== END 2025-02-16 09:15 | disposition home or self-care (01) ==
PROVIDERS: Emergency Provider Family Medicine; PCP Nurse Practitioner
DX: N20.0 Calculus of kidney (principal)
CPT/HCPCS: 74176; 80053; 81001; 83690; 84703; 85025; 87040; 96374; 96375; 99285; J0696; J1171; J1885; J2270; J2405